=== PATIENT | male | born 1980 | race Caucasian/White ===

== ENCOUNTER 2018-02-12 05:38 | Observation (INO) ==
--- NOTE | 2018-02-12 05:55 | Emergency Department Note ---
ED Disposition Clinical Impression: Chest pain Qualifiers: Chest pain type: unspecified Qualified Code(s): R07.9 - Chest pain, unspecified Obesity Qualifiers: Obesity type: due to excess calories Obesity classification: adult class 3 (BMI >= 40) Serious obesity comorbidity presence: with serious comorbidity Body mass index: BMI 40.0-44.9 Qualified Code(s): E66.01 - Morbid (severe) obesity due to excess calories; Z68.41 - Body mass index (BMI) 40.0-44.9, adult Disposition: Admitted as Observation Condition on Discharge: Good Referrals: Hima Asher [Primary Care Provider] - - Critical Care Critical Care Time: No Attestation: On 02/12/18, the high probability of a clinically significant, sudden or life threatening deterioration of the following system(s) required my full and direct attention, intervention and personal management. The time I documented below is in addition to time spent performing reported procedures but includes the following listed in this critical care notation. Medical Decision Making - Medical Records Medical records reviewed: Yes: I reviewed the patient's medical records. - Magdy Inquiry Pt receiving controlled substance: No Vital Signs: 02/12/18 05:39 02/12/18 06:00 02/12/18 06:30 Temperature 97.6 F Temperature Source Oral Pulse Rate [Right Brachial] 92 H 90 84 Respiratory Rate 17 17 18 Blood Pressure [Right Arm] 144/71 H 140/65 122/69 Blood Pressure Mean [Right Arm] 95 90 86 Blood Pressure Source [Right Arm] Automatic Cuff Blood Pressure Position [Right Arm] Supine 02 Sat by Pulse Oximetry 93 L 96 95 Oxygen Delivery Method Room Air Nasal Cannula Nasal Cannula Oxygen Flow Rate (LPM) 2 2 - Lab Data Lab results reviewed: Yes: I reviewed the patient's lab results. Lab Results 02/12/18 05:46: WBC 10.5, RBC 6.01, Hgb 15.2, Hct 45.7, MCV 76.0 L, MCH 25.3 L, MCHC 33.3, RDW 13.8, Plt Count 295, MPV 7.3 L, Neut % (Auto) 73.4, Lymph % (Au to) 17.9, [place] % (Auto) 4.6, Eos % (Auto) 3.3, Baso % (Auto) 0.8, Neut # (Auto) 7.7, Lymph # (Auto) 1.9, [place] # (Auto) 0.5, Eos # (Auto) 0.4, Baso # (Auto) 0.1 02/12/18 05:46: Sodium 140, Potassium 3.8, Chloride 105, Carbon Dioxide 24, Anion Gap 14.8, BUN 15, Creatinine 0.99, Estimated Creat Clear 103, Estimated GFR 84, Est GFR ( Amer) 102, Glucose 125 H, Calcium 8.4 L, Troponin I < 0.02 02/12/18 06:42: Troponin I < 0.02 Result diagrams: 02/12/18 05:46 02/12/18 05:46 Orders (Tests/Meds): ED MEDICATIONS Generic Name Dose Route Start Last Admin Trade Name Freq PRN Reason Stop Dose Admin Nitroglycerin/Dextrose 250 mls @ 1.5 mls/hr 02/12/18 06:00 02/12/18 05:57 Nitroglycerin 50mg/250ml D5w IV 03/14/18 05:59 5 mcg/min .Q24H MARY 1.5 mls/hr Administration Protocol 5 MCG/MIN Discontinued Medications Generic Name Dose Route Start Last Admin Trade Name Freq PRN Reason Stop Dose Admin Famotidine 20 mg 02/12/18 06:28 02/12/18 06:32 Pepcid 20mg/2ml Vial IV 02/12/18 06:29 20 mg ONCE ONE Administration Metoclopramide HCl 10 mg 02/12/18 06:28 02/12/18 06:32 Reglan 10mg/2ml Vial IVP 02/12/18 06:29 10 mg ONCE ONE Administration ORDERS Category Date Time Status ECG Request by /Nse Stat Y 02/12/18 05:44 Ordered - Radiology Data #1 Image(s): Chest Image Reviewed: Yes I reviewed the patient's radiology image Preliminary Findings: Normal/NAD - ECG Data Tracing #1 Normal Sinus Rhythm: Yes Ischemic changes: non-specific ST-T wave changes - Physician Consults Physician Consulted: pratik Reason -: Admission Chest Pain HPI - General Chief Complaint: Chest Pain Stated Complaint: chest pain Time Seen by Provider: 02/12/18 05:40 Mode of Arrival: EMS Source of Information: Patient, Spouse, EMS, Medical Record Limitations: No Limitations Description of Symptoms (Recalled from ER Triage Doc. by RN): Brought in by EMS for CP that started about 0330, states he woke up "sweating profusely, vomited, and started having stabbing chest pain". Pt denies jaw pain, c/o soa and left arm pain. - History of Present Illness HPI narrative: wm who presents with acute onset of chest pain which started this am with rad to lt upper ext and felt like pressure - no known card hx - has htn and pos fh - no recent viral illness - no hx of gerd -had stress test about 5 yrs ago MD complaint: chest pain Onset (ago): hour(s) Duration: constant Activity at onset: during rest Pain location: substernal Severity: moderate Quality: tightness Pain radiation: LUE Associated symptoms: nausea, diaphoresis Risk Factors for CAD: Hypertension, Family Hx of CAD Treatments prior to or on arrival for Cardiac Chest Pain: aspirin, nitroglycerin - NITO Score for Non-Stemi Age of Patient: 30-39 years old Heart Rate: 90-109 bpm Systolic Blood Pressure: 140-159 mmHg Serum Creatinine: 0.80-1.19 mg/dl CHF [place] Class: I-No CHF Other Risk Factors: None Non-Stemi Risk Score: 54 - Related Data Home Medications Medication Instructions Recorded Confirmed Metoprolol Succinate [Toprol XL 12.5 mg PO BID 02/12/18 02/12/18 25mg tablet] Sertraline HCl [Zoloft 100mg 100 mg PO DAILY 02/12/18 02/12/18 tablet] Allergies Allergy/AdvReac Type Severity Reaction Status Date / Time PCN (PENICILLIN) Allergy Mild Uncoded 02/12/18 05:47 [facility] History I have reviewed the patient's past medical history: Yes Medical History: Denies:: Cancer, Diabetes Mellitus Type 1, Diabetes Mellitus Type 2, MRSA Amputation: No Fractures: No - Social History Smoking Status: Former smoker Smoking End Date: 2011 Alcohol Intake: never - Psychiatric History Expresses thoughts of harming self/others: None Suicide Plan Description: No Plan ROS Obtained: Yes All systems reviewed & no additional complaints - Constitutional Constitutional: Denies fever(s) - Eyes Eyes: Denies change in vision - ENT Ears, Nose, Mouth, and Throat: Denies sore throat - Cardiovascular Cardiovascular: Reports chest pain, Reports dyspnea - Respiratory Respiratory: No cough - Gastrointestinal Gastrointestingal: Denies: abdominal pain - Genitourinary Female Genitourinary: Denies dysuria - Musculoskeletal Musculoskeletal: Denies joint pain - Integumentary/Breasts Skin/Breast: Denies rash - Neurologic Neurologic: Denies seizure-like activity Physical Exam - General General appearance: alert, in no apparent distress, obese - Head Head exam: normocephalic - Eye Eye exam: Present: PERRL, EOMI - ENT ENT exam: Present: mucous membranes moist - Neck Neck exam: Present: trachea midline - Respiratory Respiratory exam: Present: normal lung sounds bilaterally. Absent: respiratory distress - Cardiovascular Cardiovascular exam: Present: regular rate, systolic murmur - Abdominal Exam Abdominal exam: Present: soft - Extremities Exam Extremities exam: Absent: calf tenderness - Neurological Exam Neurological exam: Present: alert, oriented X3, CN II-XII intact - Psychiatric Psychiatric exam: Present: normal affect - Skin Skin exam: Absent: rash
[2018-02-12 05:58] LABS: Basophils # 0.1 K/mm3 (0-0.2); Basophils % 0.8 % (0.1-2.0); Eosinophils # 0.4 K/mm3 (0.0-0.4); Eosinophils % 3.3 % (0.1-12.0); Hematocrit 45.7 % (42.0-52.0); Hemoglobin 15.2 g/dL (14.1-18.0); Lymphocytes # 1.9 K/mm3 (0.7-4.5); Lymphocytes % 17.9 % (10-50); Mean Corpuscular HGB Conc 33.3 g/dL (31.8-35.4); Mean Corpuscular Hemoglobin 25.3 pg (27.0-31.2); Mean Platelet Volume 7.3 fl (7.4-10.4); Monocytes # 0.5 K/mm3 (0.1-1.0); Monocytes % 4.6 % (1.7-9.3); Neutrophils # 7.7 K/mm3 (1.8-7.8); Neutrophils % 73.4 % (37.0-80.0); Platelet Count 295 K/mm3 (142-424); Red Blood Count 6.01 M/mm3 (4.60-6.20); Red Cell Distribution Width 13.8 % (11.5-17.5); White Blood Count 10.5 K/mm3 (4.8-10.8)
[2018-02-12 06:13] LABS: Anion Gap 14.8 mEq/L (5-15); Blood Urea Nitrogen 15 mg/dL (7-18); Calcium 8.4 mg/dL (8.5-10.1); Carbon Dioxide 24 mmol/L (21.0-32.0); Chloride 105 mmol/L (98-107); Glucose 125 mg/dL (74-106); Potassium 3.8 mmoL/L (3.5-5.1); Sodium 140 mmol/L (136-145)
[2018-02-12 08:25] LABS: Chol/HDL Ratio 4.6 (1-3.5)
--- NOTE | 2018-02-12 10:10 | Pharmacy Consult Notes ---
[facility] Pharmacy VTE Monitoring - Patient Demographics Admission date: 02/12/18 Report Date: 02/12/18 Time: 10:10 Allergies/Adverse Reactions: Patient Allergies Penicillins Allergy (Verified 02/12/18 08:08) Unknown allergy reaction Height: 1.78 m Weight: 131.542 kg Patient Problems: Current Active Problems Chest pain (Acute) Obesity (Acute) - VTE Risk Labs: VTE Related Lab Results Hgb 15.2 g/dL (14.1-18.0) 02/12/18 05:46 Hct 45.7 % (42.0-52.0) 02/12/18 05:46 Plt Count 295 K/mm3 (142-424) 02/12/18 05:46 BUN 15 mg/dL (7-18) 02/12/18 05:46 Creatinine 0.99 mg/dL (0.70-1.30) 02/12/18 05:46 Estimated Creat Clear 103 mL/min (50-200) 02/12/18 05:46 Was VTE Risk Assessment Performed: Yes VTE Score: 1 VTE Risk Level: Very Low Risk - Prophylaxis VTE Prophylaxis Ordered?: Yes Types of VTE Prophylaxis: TEDS Knee High Location of Applied Device: Bilateral Lower Extremeties - VTE Diagnosis Confirmed Treatment or plan recommended: Continue Current Treatment
--- NOTE | 2018-02-12 10:52 | Consult Report ---
History of Present Illness Consult date: 02/12/18 Requesting physician: Antelmo Chang Consult reason: chest pain Chief complaint: chest pain Additional Medical History:: 1. Anxiety, treated with Zoloft 2. Obesity 3. Family history of coronary artery disease in his biological father's side with grandfather and uncles having heart disease in their 50s 4. Remote tobacco use history from age 16 to age 31 of 1 pack/day 5. Hypertension, treated for about 5 years History of present illness: 37-year-old white male with history as noted above presented to the emergency department for acute onset of substernal chest discomfort and pressure with radiation to left arm that woke him from sleep. Patient admits to being a very anxious person especially in the wintertime when snow is expected due to his long commute to work. Snow was expected this morning. Patient relates symptoms of chest discomfort did not improve with getting up out of bed and going outside for a few minutes so he woke his up to bring him to the hospital for further evaluation. In route he did receive IV morphine and sublingual nitroglycerin with gradual improvement in symptoms thereafter. EKG in the emergency department showed no acute ST segment changes. Troponins overnight have returned normal. Patient does relate a remote stress test about 5 years ago through [facility] that was unremarkable. Cardiology consulted for evaluation recommendations. Echocardiogram this morning showed preserved ejection fraction with no significant valvular abnormalities or wall motion abnormalities. [facility] History Medical History: Reports:: Hypertension Denies:: Cancer, Diabetes Mellitus Type 1, Diabetes Mellitus Type 2, MRSA Other Surgeries: Yes: Other (lymph nodes removed right groin) Amputation: No Fractures: No - *Social History Educational Level: Completed High School Smoking Status: Former smoker Smoking End Date: 2011 Alcohol Intake: never Occupational Status: employed Household Members: spouse - Psychiatric History Expresses thoughts of harming self/others: None Suicide Plan Description: No Plan *Family Hx:: Adopted, Coronary Artery Disease, Diabetes, Heart Attack Meds Home Medications Medication Instructions Recorded Confirmed Type Azithromycin [Z-Derrick 250mg Tab] 250 mg PO UD DOSE PK 02/12/18 02/12/18 History Cetirizine HCl 10 mg PO DAILY 02/12/18 02/12/18 History Fluticasone Propionate 1 spray NOSTRIL-B DAILY 02/12/18 02/12/18 History Metoprolol Tartrate [Lopressor 12.5 mg PO BID 02/12/18 02/12/18 History 25mg tablet] Sertraline HCl [Zoloft 100mg 100 mg PO DAILY 02/12/18 02/12/18 History tablet] guaiFENesin [Mucinex] 1,200 mg PO BID 02/12/18 02/12/18 History Allergies Allergy/AdvReac Type Severity Reaction Status Date / Time Penicillins Allergy Unknown Verified 02/12/18 08:08 allergy reaction Review of Systems - *Cardiovascular Reports chest pain, Reports shortness of breath - *Respiratory Reports shortness of breath - *Gastrointestinal Denies abdominal pain, Denies incontinent of stools, Denies vomiting - *Genitourinary Denies blood in urine - *Musculoskeletal Denies joint pain - *Neurologic Denies seizure-like activity Exam Vital signs and Labs for Last 24 Hours: Temp Pulse Resp BP Pulse Ox 98.2 F 94 H 17 131/52 L 93 L 02/12/18 08:27 02/12/18 08:27 02/12/18 08:27 02/12/18 08:27 02/12/18 08:27 Laboratory Results - last 24 hr 02/12/18 05:46: WBC 10.5, RBC 6.01, Hgb 15.2, Hct 45.7, MCV 76.0 L, MCH 25.3 L, MCHC 33.3, RDW 13.8, Plt Count 295, MPV 7.3 L, Neut % (Auto) 73.4, Lymph % (Auto) 17.9, [place] % (Auto) 4.6, Eos % (Auto) 3.3, Baso % (Auto) 0.8, Neut # (Auto) 7.7, Lymph # (Auto) 1.9, [place] # (Auto) 0.5, Eos # (Auto) 0.4, Baso # (Auto) 0.1 02/12/18 05:46: Sodium 140, Potassium 3.8, Chloride 105, Carbon Dioxide 24, Anion Gap 14.8, BUN 15, Creatinine 0.99, Estimated Creat Clear 103, Estimated GFR 84, Est GFR ( Amer) 102, Glucose 125 H, Calcium 8.4 L, Troponin I < 0.02 02/12/18 06:42: Troponin I < 0.02 02/12/18 06:42: Triglycerides 88, Cholesterol 137 L, LDL Cholesterol 89, VLDL Cholesterol 18, HDL Cholesterol 30, Cholesterol/HDL Ratio 4.6 H I & O for Last 24 hours: Intake & Output 02/09/18 02/10/18 02/11/18 02/12/18 11:59 11:59 11:59 11:59 Weight 290 lb - *Routine Neck Exam Present: supple. Absent: JVD, carotid bruit - *Routine Respiratory Exam Present: CTA bilaterally. Absent: accessory muscle use, rales, rhonchi, wheezes - *Routine Cardiovascular Exam Present: RRR. Absent: murmur, gallop, rubs - *Routine Abdominal Exam Present: soft. Absent: tenderness, distended, guarding - *Routine Extremities Exam Absent: edema, calf tenderness - *Routine Neurological Exam Present: alert, oriented X3, moving all extremities Assessment and Plan (1) Anxiety Current visit: Yes Status: Acute Category: Medical Code(s): F41.9 - Anxiety disorder, unspecified (2) Family history of coronary artery disease Current visit: Yes Status: Acute Category: Medical Code(s): Z82.49 - Family history of ischemic heart disease and other diseases of the circulatory system (3) Hypertension Current visit: Yes Status: Acute Category: Medical Code(s): I10 - Essential (primary) hypertension (4) Chest pain Current visit: Yes Status: Acute Qualifiers: Chest pain type: unspecified Qualified Code(s): R07.9 - Chest pain, unspecified Category: Medical Code(s): R07.9 - Chest pain, unspecified (5) Obesity Current visit: Yes Status: Acute Qualifiers: Obesity type: due to excess calories Obesity classification: adult class 3 (BMI >= 40) Serious obesity comorbidity presence: with serious comorbidity Body mass index: BMI 40.0-44.9 Qualified Code(s): E66.01 - Morbid (severe) obesity due to excess calories; Z68.41 - Body mass index (BMI) 40.0-44.9, adult Category: Medical Code(s): E66.9 - Obesity, unspecified - Assessment and plan all Dx Assessment and Plan for all problems:: 1. Chest pain with normal troponins x2 in no acute EKG changes. Patient has a NITO score for acute coronary syndrome of 29 which places him in the less than 1% category for 6-month mortality. With normal echocardiogram would recommend no further cardiac workup as inpatient. I did recommend follow-up stress testing through his primary care doctor. Okay from cardiology standpoint for discharge home. 2. With patient's use of caffeine and chest discomfort that gradually improved with nitroglycerin would consider further evaluation for possible gastroesophageal reflux disease.
--- NOTE | 2018-02-12 20:07 | Cardiology Report ---
PROCEDURE: 2-D M-mode and color Doppler study INDICATIONS FOR THE TEST: Chest pain + COPD Heart Murmur Tobacco Smoking+ Palpitations Fatigue Syncope Edema Hypertension+Diabetes Mellitus Rheumatic Fever SOB TRUONG Obesity Hyperlipidemia Family History HD+ Additional History abn ekg PATIENT INFORMATION HEIGHT: 70 WEIGHT:290 GENDER: Male B/P:122/69 2-D/M-MODE INTERPRETATION: 2-D MEASUREMENTS OBSERVED VALUES IN CMS Right Ventricular Dimension (RVDd) 2.3 Interventricular Septum (Thickness)(IVsd) 1.1 Left Ventricular Internal Dimensions(LVIDd) 5.0 Left Ventricular Posterior Wall (Thickness)(LVPWd) 1.0 Aortic Root 2.8 Aortic Cusp Separation 2.3 Left Atrial Dimensions (LAD) 3.8 2D 1. Left atrium is normal size, left ventricle is normal size, there is no concentric left ventricular hypertrophy, visually estimated ejection fraction 55% with no regional wall motion abnormality. 2. The right atrium and right ventricle are normal size and contractility. 3. The aortic, mitral and tricuspid valvular grossly normal. 4. The pulmonic valve is poorly visualized. 5. No significant pericardial effusion noted. DOPPLER INTERROGATION: Doppler interrogation of the aortic, mitral and tricuspid valvular presence of mild mitral and tricuspid regurgitation, tricuspid regurgitation jet velocity is inadequate for calculation of the right ventricular systolic pressure, diastolic parameters are within normal range. CONCLUSION: 1. Normal left ventricular size, preserved left ventricular systolic function, visually estimated ejection fraction 55% with no regional wall motion abnormality, diastolic parameters are within normal range. 2. Mild mitral and tricuspid regurgitation 3. No significant pericardial effusion noted.
--- NOTE | 2018-02-21 13:42 | H&P/Discharge Summary ---
General - General Admission date:: 02/12/18 Discharge date: 02/12/18 *Admission Date: 02/12/18 *Chief complaint: chest pain *History of present illness: 37yo M presented to [facility] via EMS fro chest pain. Work up in ED negative for elevated troponin or EKG changes. Consulted Medicine for admission to have cards consult and possible further work-up. Admitted to my service. Cardiology saw patient and felt it was not cardiac etiology. Recommended work-up for GERD. Pt left AMA prior to being seen by Me. Unable to obtain Hx, ROS, Perform exam due to elopement. [facility] History Medical History: Reports:: Hypertension Denies:: Cancer, Diabetes Mellitus Type 1, Diabetes Mellitus Type 2, MRSA Other Surgeries: Yes: Other (lymph nodes removed right groin) Amputation: No Fractures: No - *Social History Educational Level: Completed High School Smoking Status: Former smoker Smoking End Date: 2011 Alcohol Intake: never Occupational Status: employed Household Members: spouse - Psychiatric History Expresses thoughts of harming self/others: None Suicide Plan Description: No Plan *Family Hx:: Adopted, Coronary Artery Disease, Diabetes, Heart Attack Review of Systems - *Neurologic Denies seizure-like activity Exam Vital signs and Labs for Last 24 Hours: Temp Pulse Resp BP Pulse Ox 97.7 F 84 17 119/67 94 L 02/12/18 11:18 02/12/18 11:18 02/12/18 11:18 02/12/18 11:18 02/12/18 11:18 Narrative: unable to perform Hospital Course Hospital Course: LEft AMA after cards assessment DS: Diagnosis - Discharge Diagnosis (1) Anxiety Status: Acute (2) Family history of coronary artery disease Status: Acute (3) Hypertension Status: Acute (4) Chest pain Status: Acute (5) Obesity Status: Acute Discharge Medications - Medications for Discharge Home Medication List at Discharge: No Action Sertraline HCl [Zoloft 100mg tablet] 100 mg PO DAILY Metoprolol Tartrate [Lopressor 25mg tablet] 12.5 mg PO BID Azithromycin [Z-Derrick 250mg Tab] 250 mg PO UD DOSE PK Fluticasone Propionate 1 spray NOSTRIL-B DAILY Cetirizine HCl 10 mg PO DAILY guaiFENesin [Mucinex] 1,200 mg PO BID Disposition Disposition: Left Against Medical Advice
== END 2018-02-12 13:04 | disposition left against medical advice (07) ==
LOC: 2ND 05:38 → ER 05:38 → 2ND 08:14
PROVIDERS: ADMIT Internal Medicine Adolescent Medicine; ATTEND Internal Medicine Adolescent Medicine